=== PATIENT | female | born 1985 | race Caucasian/White ===

== ENCOUNTER 2022-09-22 15:21 | Emergency (ER) | payer MEDICARE, MEDICAID, SELFPAY ==
--- NOTE | ~2022-09-22 | XR_ITS ---
EXAMINATION: XR CHEST CLINICAL INFORMATION: Cough COMPARISON: 12/14/2018 TECHNIQUE: Frontal view of the chest was obtained. FINDINGS: There is some mild increased density associated with the infrahilar region on the right. Findings suggest small area of infiltrate. The left lung is grossly clear. There is no effusion. The cardiac silhouette is within normal limits. XR/XR chest 1V IMPRESSION: Findings suggest a infrahilar right-sided infiltrate. Follow-up films would be recommended after treatment to assess for resolution and establish baseline
[2022-09-22 15:30] VITALS: BP 141/64; BP 168/92; PULSE 110; PULSE 98; RESP 20; TEMP 37.3; O2SAT 96; BMI 46.4
[2022-09-22 16:22] LABS: COVID-19 Test Negative (Negative); IDNOW Serial# 16C4AD1C; Influenza A Negative (Negative)
[2022-09-22 16:23] LABS: Influenza B2 Negative (Negative)
--- NOTE | 2022-09-22 16:53 | ED.GENADULT ---
HPI - General Adult General Chief complaint: Overdose Stated complaint: ?OD OF PERCOCET,NARCAN GIVEN PER EMS Time Seen by Provider: 09/22/22 16:23 Source: patient Mode of arrival: ambulatory Limitations: no limitations History of Present Illness HPI narrative: 36-year-old female with with past medical history of substance abuse presents to ED for accidental overdose. Patient states she ran out of her Suboxone and methadone today so she started feeling sick and she went and bought him [address] Patient states after taking them she woke up in the ambulance. Patient admits Percocets been laced. Patient states she was not trying to kill herself. Patient given 8 mg of Narcan and came to herself as per EMS report. Patient states she loves her life and has no plan to kill herself. Patient just wants to do with her symptoms due to running out of Suboxone/methadone. Patient states secondary complaint is couging for the past 5 days. Related Data Previous Rx's Medication Instructions Recorded amoxicillin 500 mg capsule 1,000 mg PO TID 5 days #30 caps 09/22/22 doxycycline hyclate 100 mg capsule 100 mg PO BID 7 days #14 caps 09/22/22 Allergies Allergy/AdvReac Type Severity Reaction Status Date / Time codeine [CODEINE] Allergy Unknown HIVES Verified 09/22/22 15:30 tramadol [Tramadol] Allergy Unknown HIVES Verified 09/22/22 15:30 From Ultram Allergy Unknown HIVES Uncoded 08/03/20 17:53 Review of Systems Review of Systems: accidental overdose. Coughing for the past 4 days with green phelghm Yes all other systems are reviewed and are negative PMFSH Social History Social History Advance Directives: No Advance Directives Information Provided: Yes Physical Exam ED Vital Signs: Vital Signs - 24 hr 09/22/22 15:30 Temperature 99.2 F Pulse Rate 98 Respiratory Rate 20 Blood Pressure 141/64 H Pulse Oximetry 96 Oxygen Delivery Method Room Air BMI result Body Mass Index 46.4 Const General: cooperative, healthy appearing, comfortable, no acute distress and well developed Orientation/consciousness: oriented to time and patient oriented x3 HENMT Head: Yes normal to inspection, Yes No palpable skull fracture present, Yes normocephalic, Yes atraumatic and No abrasion Eyes General: appearance normal, both eyes and all related structures Neck Neck: Yes normal visual inspection, Yes full ROM, Yes no lymphadenopathy, Yes no meningeal signs, Yes trachea midline, Yes supple, No anterior neck swelling and No tender Chest Chest palpation & inspection: normal inspection of the chest and normal palpation of entire chest wall Resp Effort & Inspection: normal respiratory effort and able to speak in complete sentences Auscultation: clear to auscultation bilaterally Cardio Jugular venous distension: no JVD Heart sounds: S1 normal heart sound present and S2 normal heart sound present GI Inspection: Yes normal to inspection and No abdominal wall ecchymosis Palpation (GI): Soft to palpation, not firm, nontender, no guarding and not rigid General: No CVA tenderness and Yes no CVA tenderness Back/Spine/Pelvis Back: no CVA tenderness, No CVA tenderness and No back tenderness Skin General skin exam: no rashes or lesions noted and elasticity normal Neuro General: oriented to time, patient oriented x3, gait normal, tone normal, no meningeal signs and CN's II-XI intact bilaterally Cranial nerves: Yes CN's II-XII intact bilaterally Extrem General: Yes normal to inspection and Yes full ROM Psych Appearance: grossly normal, well kempt and not disheveled Course Course Course Narrative: U tox CONROY ordered. Consult care team for sewed was ordered. Reevaluation(s) Reevaluation #1: Nurse informed the patient eloped from the ER. Patient positive for chest x-ray with pneumonia. Patient was called for pneumonia and to tell her for antibiotics. Phone call patient picked up and then hang up immediately without responding. This was done twice. Time: 18:02 Medical Decision Making Lab Data Labs: Lab Results 09/22/22 09/22/22 Range/Units 15:50 15:50 COVID-19 ([facility]) Negative (Negative) COVID-19 Clin Com See Note Influenza Type A ([facility]) Negative (Negative) Influenza Type B ([facility]RO) Negative (Negative) Influenza A & B Note See Note Discharge Plan Discharge Clinical Impression: Pneumonia, Drug overdose Patient Disposition: Elopement Instructions: Community Acquired Pneumonia (ED), Adult Overdose (ED) Prescriptions: New doxycycline hyclate 100 mg capsule 100 mg PO BID 7 Days Qty: 14 0RF amoxicillin 500 mg capsule 1,000 mg PO TID 5 Days Qty: 30 0RF Interventions: ED Discharge Assessment Last Done: 09/22/22 17:59 Discharge Date/Time: 09/22/22 17:59
--- NOTE | 2022-09-22 17:47 | PC.NURSE ---
Patient appears to have eloped. 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
== END 2022-09-22 17:59 | disposition left against medical advice (07) ==
PROVIDERS: Emergency Provider Student in an Organized Health Care Education/Training Program
DX: T40.2X1A Poisoning by other opioids, accidental (unintentional), initial encounter (principal); Y92.9 Unspecified place or not applicable; J18.9 Pneumonia, unspecified organism; Z20.822 Contact with and (suspected) exposure to COVID-19
CPT/HCPCS: 71045; 87502; 87635; 99282; 99283